=== PATIENT | female | born 1950 | race Caucasian/White ===

== ENCOUNTER 2021-10-29 13:16 | Inpatient (IN) ==
[2021-10-29] MEDS ORDERED: DICLOFENAC SODIUM TP PRN (14:36)
[2021-10-30 04:53] LABS: Basophils # 0.1 K/mcL (0.0-0.2); Basophils % 0.5 %; Eosinophils # 0.4 K/mcL (0.0-0.6); Hematocrit 37.5 % (35.3-44.9); Hemoglobin 12.6 g/dL (11.5-15.4); Immature Granulocytes % 1.8 % (0-4); Lymphocytes # 3.4 K/mcL (0.6-4.6); Lymphocytes % 26.2 %; Mean Corpuscular HGB Conc 33.6 g/dL (31.6-35.5); Mean Corpuscular Hemoglobin 31.9 pg (28.0-33.3); Mean Corpuscular Volume 94.9 fL (83.0-100.0); Mean Platelet Volume 9.6 fL (9.4-12.4); Monocytes # 0.9 K/mcL (0.0-1.3); Monocytes % 7.2 %; Neutrophils # 7.9 K/mcL (1.6-8.9); Platelet Count 290 K/mcL (140-400); Red Blood Count 3.95 M/mcL (3.82-4.97); Red Cell Distribution Width 14.6 % (11.5-14.5); Segmented Neutrophils % 61.3 %; White Blood Count 12.9 K/mcL (4.3-11.1)
[2021-10-30 05:05] LABS: BUN/Creatinine Ratio 16 (6-26); Blood Urea Nitrogen 14 mg/dL (8-23); Calcium 8.7 mg/dL (8.6-10.3); Carbon Dioxide 30 mEq/L (23-29); Chloride 103 mEq/L (98-107); Glucose 90 mg/dL (70-105); Osmolality,Calculated 288 (280-300); Potassium 3.9 mEq/L (3.5-5.1); Sodium 139 mEq/L (136-145); eGFR For African Americans > 60 (> 60); eGFR For Non-African Americans > 60 (> 60)
[2021-10-30] MEDS: *HR* Enoxaparin 40 MG/0.4 ML SYRINGE SQ SCH (06:19)
[2021-10-30] MEDS: Folic Acid 1 MG TABLET PO SCH (08:47)
[2021-10-30] MEDS ORDERED: Ondansetron ODT 4 MG TAB.RAPDIS SL PRN (09:18)
[2021-10-30] MEDS ORDERED: *HR* OxyCODONE Immed Rel 5 MG TABLET PO PRN (09:18)
[2021-10-30] MEDS: Sennosides/Docusate Sodium TABLET PO SCH (20:18)
[2021-10-31] MEDS: *HR* Enoxaparin 40 MG/0.4 ML SYRINGE SQ SCH (04:43)
[2021-10-31] MEDS: Folic Acid 1 MG TABLET PO SCH (07:48)
[2021-10-31] MEDS: Sennosides/Docusate Sodium TABLET PO SCH ×2 (07:49→19:39)
[2021-10-31] MEDS: polyethylene glycoL 3350 17 GM POWD.PACK PO SCH (07:49)
[2021-11-01] MEDS: *HR* Enoxaparin 40 MG/0.4 ML SYRINGE SQ SCH (05:27)
[2021-11-01] MEDS: Folic Acid 1 MG TABLET PO SCH (08:51)
[2021-11-01] MEDS: polyethylene glycoL 3350 17 GM POWD.PACK PO SCH (08:52)
[2021-11-01] MEDS: Sennosides/Docusate Sodium TABLET PO SCH ×2 (08:53→21:50)
[2021-11-01] MEDS ORDERED: *HR* Methotrexate 2.5 MG TABLET PO SCH (14:28)
[2021-11-02] MEDS: *HR* Enoxaparin 40 MG/0.4 ML SYRINGE SQ SCH (04:14)
[2021-11-02 05:36] LABS: Hematocrit 38.6 % (35.3-44.9); Hemoglobin 13.1 g/dL (11.5-15.4); Mean Corpuscular HGB Conc 33.9 g/dL (31.6-35.5); Mean Corpuscular Hemoglobin 32.1 pg (28.0-33.3); Mean Corpuscular Volume 94.6 fL (83.0-100.0); Mean Platelet Volume 9.7 fL (9.4-12.4); Platelet Count 275 K/mcL (140-400); Red Blood Count 4.08 M/mcL (3.82-4.97); Red Cell Distribution Width 14.5 % (11.5-14.5); White Blood Count 11.9 K/mcL (4.3-11.1)
[2021-11-02 05:54] LABS: Alanine Aminotransferase 15 Units/L (7-52); Albumin 3.4 g/dL (3.5-5.7); Alkaline Phosphatase 85 Units/L (34-104); Aspartate Amino Transferase 20 Units/L (13-39); BUN/Creatinine Ratio 15 (6-26); Bilirubin,Total 0.7 mg/dL (0.3-1.0); Blood Urea Nitrogen 12 mg/dL (8-23); Calcium 9.2 mg/dL (8.6-10.3); Carbon Dioxide 27 mEq/L (23-29); Chloride 105 mEq/L (98-107); Globulin 3.3 g/dL (2.4-3.5); Glucose 91 mg/dL (70-105); Osmolality,Calculated 289 (280-300); Sodium 140 mEq/L (136-145); Total Protein 6.7 g/dL (6.4-8.9); eGFR For African Americans > 60 (> 60); eGFR For Non-African Americans > 60 (> 60)
[2021-11-02] MEDS: Folic Acid 1 MG TABLET PO SCH (08:04)
[2021-11-02] MEDS: Sennosides/Docusate Sodium TABLET PO SCH ×2 (08:05→20:33)
[2021-11-02] MEDS: polyethylene glycoL 3350 17 GM POWD.PACK PO SCH (08:05)
[2021-11-03] MEDS: *HR* Enoxaparin 40 MG/0.4 ML SYRINGE SQ SCH (05:23)
[2021-11-03] MEDS: Folic Acid 1 MG TABLET PO SCH (07:54)
[2021-11-03] MEDS: Sennosides/Docusate Sodium TABLET PO SCH ×2 (07:55→21:27)
[2021-11-03] MEDS: polyethylene glycoL 3350 17 GM POWD.PACK PO SCH (07:55)
[2021-11-04] MEDS: *HR* Enoxaparin 40 MG/0.4 ML SYRINGE SQ SCH (05:29)
[2021-11-04] MEDS: polyethylene glycoL 3350 17 GM POWD.PACK PO SCH (08:25)
[2021-11-04] MEDS: Sennosides/Docusate Sodium TABLET PO SCH ×2 (08:25→21:14)
[2021-11-04] MEDS: Folic Acid 1 MG TABLET PO SCH (08:27)
[2021-11-04 18:50] VITALS: RESP 16
[2021-11-05] MEDS ORDERED: Melatonin 3 MG TABLET PO ONE ×2 (00:49→21:38)
[2021-11-05] MEDS: *HR* Enoxaparin 40 MG/0.4 ML SYRINGE SQ SCH (06:09)
[2021-11-05] MEDS: polyethylene glycoL 3350 17 GM POWD.PACK PO SCH (07:47)
[2021-11-05] MEDS: Sennosides/Docusate Sodium TABLET PO SCH ×2 (07:47→21:25)
[2021-11-05] MEDS: Folic Acid 1 MG TABLET PO SCH (07:47)
[2021-11-06] MEDS: *HR* Enoxaparin 40 MG/0.4 ML SYRINGE SQ SCH (06:30)
[2021-11-06] MEDS: Sennosides/Docusate Sodium TABLET PO SCH (07:50)
[2021-11-06] MEDS: Folic Acid 1 MG TABLET PO SCH (07:50)
[2021-11-06] MEDS: polyethylene glycoL 3350 17 GM POWD.PACK PO SCH (07:50)
[2021-11-06 09:10] VITALS: BP 110/68; PULSE 63; TEMP 97.7; O2SAT 95
== END 2021-11-06 16:53 | disposition home health service (06) | DRG 560 ==
LOC: INPGRE 14:02
PROVIDERS: ADMIT Family Medicine; ATTEND Family Medicine